=== PATIENT | female | born 1980 | race Caucasian/White ===

== ENCOUNTER → 2024-07-24 18:58 | Outpatient (REF) | payer OTHER, SELFPAY | LOC: WDC 18:58 | PROVIDERS: ATTENDING PHYSICIAN Emergency Medicine; FAMILY PHYSICIAN Obstetrics & Gynecology | DX: Z12.31 Encounter for screening mammogram for malignant neoplasm of breast (principal) | CPT/HCPCS: 77063; 77067 ==

== ENCOUNTER → 2025-02-15 13:15 | Outpatient (REF) | payer OTHER, SELFPAY | LOC: HWRAD 13:15 | PROVIDERS: ATTENDING PHYSICIAN Obstetrics & Gynecology; FAMILY PHYSICIAN Family Medicine | DX: N93.9 Abnormal uterine and vaginal bleeding, unspecified (principal) | CPT/HCPCS: 76830; 76856 ==

== ENCOUNTER → 2025-03-18 10:22 | Outpatient (REF) | payer OTHER, SELFPAY | LOC: RCS 10:22 | PROVIDERS: ATTENDING PHYSICIAN Internal Medicine Cardiovascular Disease; FAMILY PHYSICIAN Family Medicine | DX: R00.2 Palpitations (principal) | CPT/HCPCS: 93225; 93226 ==

== ENCOUNTER → 2025-03-22 14:16 | Outpatient (REF) | payer OTHER, SELFPAY | LOC: RCS 14:16 | PROVIDERS: ATTENDING PHYSICIAN Internal Medicine Cardiovascular Disease; FAMILY PHYSICIAN Family Medicine | DX: R00.2 Palpitations (principal); R07.89 Other chest pain | CPT/HCPCS: 93017 ==

== ENCOUNTER 2025-06-17 06:00 | Day surgery (SDC) | payer OTHER, SELFPAY ==
[2025-06-07 11:38] LABS: Hematocrit 43.1 % (37.0-47.0); Hemoglobin 14.4 g/dL (12.0-16.0); Mean Corp Hgb Conc. 33.4 g/dL (33.0-37.0); Mean Corpuscular Volume 87.8 fL (81.0-99.0); Nucleated Red Blood Cells % 0 %; Platelet Count 226 10^3/uL (130-400); Red Cell Dist. Width 12.1 % (11.5-14.5)
[2025-06-07 11:40] LABS: INR 1.02; PT 13.7 Sec (11.4-14.6)
[2025-06-07 11:41] LABS: APTT 29.4 Sec (23.4-35.0)
[2025-06-07 14:08] VITALS: BMI 24.0
[2025-06-17 07:32] VITALS: BMI 24.0
[2025-06-17 07:33] VITALS: BP 139/91
[2025-06-17] MEDS: TYLENOL 1000 MG PO (07:40)
[2025-06-17] MEDS: NORMOSOL-R/PLASMALYTE-A 1000 IV (07:48)
[2025-06-17 08:47] VITALS: BP 122/78
[2025-06-17 09:00] VITALS: BP 110/82
[2025-06-17 09:15] VITALS: BP 110/99
[2025-06-17 09:30] VITALS: BP 110/75
== END 2025-06-17 09:45 | disposition home or self-care (01) ==
LOC: SDS 06:00
PROVIDERS: ATTENDING PHYSICIAN Obstetrics & Gynecology; FAMILY PHYSICIAN Family Medicine
DX: N84.0 Polyp of corpus uteri (principal)
CPT/HCPCS: 58558; 36415; 85025; 85610; 85730; 88305